=== PATIENT | male | born 1990 | race Two or more races ===

== ENCOUNTER 2018-08-02 12:48 | Inpatient (IN) | payer MEDICAID ==
--- NOTE | 2018-08-02 21:16 | NUR ---
It was reported that client eloped before arriving on the unit.
== END 2018-08-02 21:15 | disposition left against medical advice (07) | DRG 751 ==
LOC: ADULT MH 12:48
PROVIDERS: ADMIT Psychiatry & Neurology Psychiatry; ATTEND Psychiatry & Neurology Psychiatry
DX: F29 Unspecified psychosis not due to a substance or known physiological condition (principal); Z53.21 Procedure and treatment not carried out due to patient leaving prior to being seen by health care provider
CPT/HCPCS: 99285